=== PATIENT | male | born 1960 ===

== ENCOUNTER 2024-02-24 09:35 | Outpatient (CLI) | payer OTHER, SELFPAY ==
--- NOTE | ~2024-02-24 | MR_ITS ---
EXAMINATION: MR knee LT wo con DATE: 02/24/2024 10:33 INDICATION: Generalized left knee pain. TECHNIQUE: Magnetic resonance imaging (MRI) of the left knee was performed without intravenous contra st. Sequences included axial PD-weighted FS FSE, coronal PD-weighted FSE and PD-weighted FS FSE, sagi ttal PD-weighted FSE, and sagittal T2-weighted FS FSE. COMPARISON: None. FINDINGS: Medial compartment: There is an upper surface horizontal tear of body and posterior horn of medial meniscus. There is par tial-thickness cartilage loss of femoral condyle, deep at the central articular surface. There is car tilage surface irregularity of tibial condyle. Lateral compartment: There is a radial tear of posterior root of lateral meniscus. There is cartilage surface irregularity of femoral condyle. There is partial-thickness cartilage loss of tibial condyle, deep at the central articular surface with mild subchondral edema-like marrow signal intensity. Patellofemoral compartment: There is deep cartilage fissuring of patellar medial facet. There is full-thickness cartilage loss of central trochlea with mild subchondral edema-like marrow central intensity. Ligaments and tendons: The anterior and posterior cruciate ligaments are normal. There are changes of prior sprains of media l collateral ligament and fibular collateral ligament characterized by thickening and increased signa l intensity proximally. There is mild patellar tendinopathy. Fluid: There is a moderate-sized knee joint effusion. There is a large Hall's cyst with loose bodies. IMPRESSION: 1. Severe chondrosis of patellofemoral compartment and and moderate chondrosis of medial and lateral compartments. 2. Tears of medial and lateral menisci. 3. Moderate-sized knee joint effusion. 4. Large Hall's cyst with loose bodies. Reviewed, dictated and finalized at location A.
== END 2024-02-24 09:36 | disposition home or self-care (01) ==
DX: M94.262 Chondromalacia, left knee (principal); S83.282A Other tear of lateral meniscus, current injury, left knee, initial encounter; S83.242A Other tear of medial meniscus, current injury, left knee, initial encounter; X58.XXXA Exposure to other specified factors, initial encounter; M25.462 Effusion, left knee; M71.22 Synovial cyst of popliteal space [Baker], left knee
CPT/HCPCS: 73721